=== PATIENT | female | born 1995 | race Caucasian/White ===

== ENCOUNTER 2021-08-09 11:24 | Emergency (ER) | payer OTHER, SELFPAY ==
[2021-08-09 11:25] VITALS: BP 130/83; PULSE 94; RESP 18; TEMP 37.1; O2SAT 98; BMI 31.3
[2021-08-09 11:56] LABS: UTC Strep Screen (Rapid) Negative (Negative)
--- NOTE | 2021-08-09 12:11 | HMH.EDUTC ---
[facility] [place] Disposition Clinical Impression: URI (upper respiratory infection) Qualifiers: URI type: unspecified URI Qualified Code(s): J06.9 - Acute upper respiratory infection, unspecified Disposition: Home, Self-Care Condition on Discharge: Good Instructions: Sore Throat Additional Instructions: *Monitor Temp, Over the counter Motrin or Tylenol as directed/as needed Tylenol every 4 hours and Motrin every 6 hours (as long as your family doctor has told you that you can take it) for fever or pain. and straight to ER if unable to lower temp less than 101.0 after medication given *Warm salt water gargles may help to soothe the throat *Throat Lozenges *Warm fluids like tea with honey may help to soothe the throat *Sleep elevated *Humidifier/Vaporizer Your throat swab was sent for culture. Those results are typically sent to your primary care. Be sure to follow up in 2-3 days with your family doctor/primary care physician if no improvement so they can review those result and treat if necessary. If you don?t have a primary care doctor, I recommend you get one but in the mean time, you will have to return to a walk in clinic Follow up IMMEDIATELY for new or worsening symptoms or no Noticeable improvement over the next 48-72 hours. 911 for difficulty breathing or swallowing Prescriptions: Azithromycin [Z-Jose 250mg Tab] 250 mg PO DIRECTED #6 tab Transmission Status: Pending to [facility]/pharmacy #[id number] Referrals: Provider,Referral, MD [Primary Care Provider] - As needed Forms: Work/School Release Time of Disposition: 13:05 Medical Decision Making - Aubrey Inquiry Pt receiving controlled substance: No Aubrey was queried for this patient: No Vital Signs: 08/09/21 11:25 Temperature 98.7 F Temperature Source Oral Pulse Rate [Left Radial] 94 H Respiratory Rate 18 Blood Pressure [Right Arm] 130/83 Blood Pressure Mean [Right Arm] 98 Blood Pressure Source [Right Arm] Automatic Cuff Blood Pressure Position [Right Arm] Sitting 02 Sat by Pulse Oximetry 98 Oxygen Delivery Method Room Air - Lab Data Lab results reviewed: Yes: I reviewed the patient's lab results. Lab Results 08/09/21 11:52: Strep Scn Rapid Clinic Negative 08/09/21 12:19: Monoscreen Negative Orders (Tests/Meds): ORDERS Category Date Time Status Strep Screen Confirmation Routine Micro 08/09/21 11:52 Received [facility] [place] HPI - General Stated complaint: swollen throat Time Seen by Provider: 08/09/21 12:11 Mode of Arrival: Ambulatory Source of Information: Patient Limitations: No Limitations Description of Symptoms (Recalled from Triage Doc. by RN): sore throat since Sunday HEENT Symptoms (Recalled from RN notes): Yes Resp Symptoms (Recalled from RN notes): No Skin Symptoms (Recalled from RN notes): No MS Symptoms (Recalled from RN notes): No Functional Status (Recalled from RN notes): na - History of Present Illness Provider Complaint: Patient states that she has been having sorethroat and pain with swallowing since Sunday States that she is swollen on her right tonsil area and noticed it had white patchy like area on her right tonsil and feels like it sore and swollen lymph node on right side of neck - Related Data Previous Rx's Medication Instructions Recorded Azithromycin [Z-Jose 250mg Tab] 250 mg PO DIRECTED #6 tab 08/09/21 Allergies Allergy/AdvReac Type Severity Reaction Status Date / Time amoxicillin [From Augmentin] Allergy Intermediate VOMITING Unverified 10/02/17 14:58 clavulanic acid Allergy Intermediate VOMITING Unverified 10/02/17 14:58 [From Augmentin] - Worker's Comp Is this a Worker's Comp case?: No [facility] History - Hepatitis A Screen Drug use history?: No High risk sexual behaviors?: No History of sexually transmitted infection?: No Currently employed?: No Childcare worker?: No Do you have indoor plumbing?: Yes Do you have electricity?: Yes Attestation statement:: This patient has been screen
[2021-08-09 13:01] LABS: Monoscreen (Rapid) Negative (Negative)
[2021-08-09 13:15] VITALS: BP 130/83; PULSE 94; RESP 18; TEMP 37.1; O2SAT 98
== END 2021-08-09 13:15 | disposition home or self-care (01) ==
PROVIDERS: Emergency Provider Nurse Practitioner
DX: J06.9 Acute upper respiratory infection, unspecified (principal); M54.2 Cervicalgia
CPT/HCPCS: 86318; 87880; 99203; G0463